=== PATIENT | female | born 1980 | race Caucasian/White ===

== ENCOUNTER 2016-05-23 22:22 | Emergency (ER) | payer MEDICAID ==
--- NOTE | 2016-05-23 22:55 | Emergency Department Record ---
History of Present Illness - General Chief Complaint: Fall Injury Stated Complaint: FALL Time Seen by Provider: 05/23/16 22:54 Source: Patient Mode of Arrival: Ambulatory Limitations: No limitations - History of Present Illness Initial Comments: The patient is here due to a worsening of her chronic L hip pain. She states she has had the pain for at least 6 months and tonight tripped on the carpet and landed on her buttocks. Now the pain is worse. She is able to walk with a mild limp. She denies any back or AP. Her LMP was WNL and she does have an IUD in place so she denies the possibility of . MD Complaint: Fall Onset/Timin -: Hour(s) Fall From: From height (distance) When Fall Occurred: Just prior to arrival, [address] Fall Occurred: Home Loss of Consciousness: None Prolonged Down Time?: No Symptoms Prior to Fall: None Location: Buttocks Severity: Mild Severity scale (1-10): 8 Quality: Other Context: Other Associated Symptoms: Denies - Riana Coma Scale Eye Response: (4) Open spontaneously Motor Response: (6) Obeys commands Verbal Response: (5) Oriented Riana Total: 15 - Related Data Home Medications Medication Instructions Recorded Confirmed Last Taken Sertraline HCl [Zoloft] 50 mg PO DAILY 12/20/15 05/23/16 03/30/16 Alprazolam [Alprazolam] 0.25 mg PO ASDIR 05/23/16 05/23/16 Unknown Previous Rx's Medication Instructions Recorded Naproxen [Naprosyn] 250 mg PO BID #14 tablet 05/23/16 Allergies Allergy/AdvReac Type Severity Reaction Status Date / Time tramadol Allergy HIVES Verified 12/20/15 22:01 Travel Screening - Travel/Exposure Within Last 30 Days Have you traveled within the last 30 days?: No - Travel/Exposure Within Last Year Have you traveled outside the [place] in the last year?: No - Additonal Travel Details Have you been exposed to anyone with a communicable illness?: No - Travel Symptoms Symptom Screening: None Review of Systems Constitutional: Denies: Chills, Fever Eyes: Denies: Eye discharge ENT: Denies: Congestion Respiratory: Denies: Cough, Dyspnea Past Medical History - SOCIAL HISTORY Smoking Status: Current every day smoker Alcohol Use: None Drug Use: None - RESPIRATORY Hx Respiratory Disorders: Yes Hx Asthma: Yes - CARDIOVASCULAR Hx Cardio Disorders: No - NEURO Hx Neuro Disorders: Yes Hx Headaches: Yes - GI Hx GI Disorders: No - Hx Genitourinary Disorders: No - ENDOCRINE Hx Endocrine Disorders: No - MUSCULOSKELETAL Hx Musculoskeletal Disorders: No - PSYCH Hx Psych Problems: Yes Hx Anxiety: Yes Hx Depression: Yes (Bipolar) - HEMATOLOGY/ONCOLOGY Hx Hematology/Oncology Disorders: No Family Medical History Any Significant Family History?: No Hx Cancer: Mother, Grandparents Hx Diabetes: Grandparents Physical Exam - General General Appearance: Alert, Oriented x3, Cooperative, No acute distress - Head Head exam: Atraumatic, Normal inspection - Eye Eye exam: Normal appearance, PERRL - GI/Abdominal GI/Abdominal exam: Soft, Normal bowel sounds. negative: Tenderness - Extremities Extremities exam: Normal inspection, Full ROM (There is pain with ROM of the L hip.), Tenderness (There is mild L hip tenderness.) - Back Back exam: Reports: Normal inspection, Full ROM. Denies: Muscle spasm, Paraspinal tenderness, Rash noted, Tenderness, Vertebral tenderness - Neurological Neurological exam: Alert, Normal gait. negative: Abnormal gait, Motor sensory deficit Course Vital Signs 05/23/16 22:37 Temperature 98.3 F Pulse Rate 80 Respiratory 20 Rate Blood Pressure 123/83 Pulse Ox 98 - Reevaluation(s) Reevaluation #1: I did discuss the xrays with the patient and the need for F/U with her PCP. 05/23/16 23:26 Medical Decision Making - Data Complexity MDM Data: X-Ray Ordered and/or Reviewed - Radiology Data Radiology results: Report reviewed (L Hip: Neg.) Disposition Disposition: Discharge Clinical Impression: Contusion of hip Qualifiers: Encounter type: initial encounter Laterality: left Qualified Code(s): S70.02XA - Contusion of left hip, initial encounter Disposition: Home, Self-Care Condition: (1) Good Instructions: Contusion in Adults (ED) Additional Instructions: Please use ice to the L hip during the day. Take Naprosyn for pain. Please see your PCP if not better in 3-5 days. Prescriptions: Naproxen [Naprosyn] 250 mg PO BID #14 tablet Forms: Patient Portal Access Time of Disposition: 23:27
[2016-05-23] MEDS ORDERED: KETOROLAC 30 MG/ML VIAL IM ONE (22:57)
[2016-05-23] MEDS ORDERED: HYDROCODONE/APAP 5/325MG TABLET PO ONE (23:25)
--- NOTE | 2016-05-28 12:48 | RADIOLOGY REPORT ---
EXAM: LEFT HIP HISTORY: PAIN POST FALL. PAIN WHEN LYING FLAT. TECHNIQUE: An AP view of the pelvis was obtained as well as AP and frog leg lateral views of the left hip. Comparison: Left hip dated 12/21/15. FINDINGS: There is normal bone mineralization. No acute fracture, dislocation , or destructive bone lesion is seen. The hip joint spaces are maintained. Tiny ossicles are again noted at the level of the superior lateral margins of the acetabuli. These are likely developmental. An intrauterine contraceptive device is in place with the uterine fundus likely tilted rightward. No mass or suspicious calcification. IMPRESSION: NO ACUTE FRACTURE NOR DISLOCATION IDENTIFIED. JOB NUMBER: [id number] MTDD
== END 2016-05-23 23:43 | disposition home or self-care (01) ==
LOC: ER 22:22
DX: S70.02XA Contusion of left hip, initial encounter (principal); W18.09XA Striking against other object with subsequent fall, initial encounter; Y92.009 Unspecified place in unspecified non-institutional (private) residence as the place of occurrence of the external cause
CPT/HCPCS: 99283; 96372; 99284; 73502; J1885

== ENCOUNTER 2016-06-12 17:58 | Emergency (ER) | payer MEDICAID ==
[2016-06-12] MEDS ORDERED: NAPROXEN 250 MG TABLET PO ONE (18:33)
[2016-06-12 18:35] LABS: URINE APPEARANCE CLEAR; URINE BILIRUBIN NEGATIVE (NEGATIVE); URINE BLOOD TRACE-I (NEGATIVE); URINE COLOR YELLOW; URINE GLUCOSE (UA) NEGATIVE (NEGATIVE); URINE KETONE NEGATIVE (NEGATIVE); URINE LEUKOCYTE ESTERASE NEGATIVE (NEGATIVE); URINE NITRITE NEGATIVE (NEGATIVE); URINE PROTEIN NEGATIVE (NEGATIVE); URINE UROBILINOGEN 0.2 E.U./dL (0.20 - 1.00)
--- NOTE | 2016-06-12 18:36 | Emergency Department Record ---
History of Present Illness - General Chief Complaint: Abdominal Pain Stated Complaint: LEFT ABD PAIN/CYST Time Seen by Provider: 06/12/16 18:32 Source: Patient Mode of Arrival: Ambulatory Limitations: No limitations - History of Present Illness Initial Comments: 35 yo female presents to ED with a CC of LLQ pain x 1 week. Patient reports that she was diagnosed with as "pelvic infection" 1 week ago as well as a ovarian cyst 1 week ago in [place] ED. Patient denies fevers, chills, or recent illness. Patient denies health problems at her baseline. Patient is now out of her [place] and Motrin that she was prescribed, but is still taking her antibiotic. MD Complaint: Abdominal pain Onset/Timin -: Week(s) Location: LLQ Severity: Moderate Consistency: Constant Improves With: Nothing Worsens With: Other (palpation) Associated Symptoms: Denies other symptoms - Related Data Patient : No Home Medications Medication Instructions Recorded Confirmed Last Taken Sertraline HCl [Zoloft] 50 mg PO DAILY 12/20/15 06/12/16 06/12/16 Metronidazole [Flagyl] 500 mg PO BID 06/12/16 06/12/16 06/12/16 Previous Rx's Medication Instructions Recorded Ibuprofen [Motrin] 800 mg PO Q6H PRN #30 tab 06/12/16 Allergies Allergy/AdvReac Type Severity Reaction Status Date / Time tramadol Allergy HIVES Verified 06/12/16 18:35 Review of Systems Constitutional: Denies: Chills, Fever, Malaise, Night sweats Eyes: Denies: Eye discharge, Eye pain ENT: Denies: Congestion, Ear pain, Epistaxis Respiratory: Denies: Cough, Dyspnea Cardiovascular: Denies: Chest pain, Dyspnea on exertion Endocrine: Denies: Fatigue, Heat or cold intolerance Gastrointestinal: Reports: Abdominal pain. Denies: Nausea, Vomiting Genitourinary: Denies: Dysuria, Hematuria, Incontinence Musculoskeletal: Denies: Arthralgia, Back pain, Gout, Joint swelling Skin: Denies: Bruising, Change in color Neurological: Denies: Abnormal gait, Confusion, Headache, Tingling Psychiatric: Denies: Anxiety Hematological/Lymphatic: Denies: Anemia, Blood Clots Past Medical History - SOCIAL HISTORY Smoking Status: Current every day smoker Drug Use: None - RESPIRATORY Hx Respiratory Disorders: Yes Hx Asthma: Yes - CARDIOVASCULAR Hx Cardio Disorders: No - NEURO Hx Neuro Disorders: Yes Hx Headaches: Yes - GI Hx GI Disorders: No - Hx Genitourinary Disorders: No - ENDOCRINE Hx Endocrine Disorders: No - MUSCULOSKELETAL Hx Musculoskeletal Disorders: No - PSYCH Hx Psych Problems: Yes Hx Anxiety: Yes Hx Depression: Yes (Bipolar) - HEMATOLOGY/ONCOLOGY Hx Hematology/Oncology Disorders: No Family Medical History Hx Cancer: Mother, Grandparents Hx Diabetes: Grandparents Physical Exam - General General Appearance: Alert, Oriented x3, Cooperative, Mild distress Limitations: No limitations - Head Head exam: Atraumatic, Normocephalic, Normal inspection Head exam detail: negative: Abrasion, Contusion, Donahue's sign, General tenderness, Hematoma, Laceration - Eye Eye exam: Normal appearance. negative: Conjunctival injection, Periorbital swelling, Periorbital tenderness, Scleral icterus - ENT Ear exam: negative: Auricular hematoma, Auricular trauma Nasal Exam: negative: Active bleeding, Discharge, Dried blood, Foreign body, Sinus tenderness Mouth exam: negative: Drooling, Laceration, Muffled voice, Tongue elevation - Neck Neck exam: Normal inspection. negative: Meningismus, Tenderness - Respiratory Respiratory exam: Normal lung sounds bilaterally. negative: Respiratory distress, Rhonchi, Stridor, Wheezes - Cardiovascular Cardiovascular Exam: Regular rate, Normal rhythm, Normal heart sounds - GI/Abdominal GI/Abdominal exam: Soft, Tenderness (TTP LLQ, no rebound or guarding on examination). negative: Distended, Rebound, Rigid - Rectal Rectal exam: Deferred - exam: Deferred - Extremities Extremities exam: Normal inspection. negative: Calf tenderness, Pedal edema, Tenderness - Back Back exam: Denies: CVA tenderness (R), CVA tenderness (L) - Neurological Neurological exam: Alert, Normal gait, Oriented X3 - Psychiatric Psychiatric exam: Normal affect, Normal mood - Skin Skin exam: Normal color. negative: Abrasion Type of lesion: negative: abrasion Course - Reevaluation(s) Reevaluation #1: 06/12/16 19:13 Labs reviewed and are grossly unremarkable for an acute process. Patient is currently in US. Patient declined Naprosyn for her pain symptoms that was ordered for her in ED. Reevaluation #2: 06/12/16 20:46 US pelvis: 3.2 cm simple cyst left, normal blood flow bilaterally, intrauterine device in satisfactory placement. Patient updated on all results, is resting comfortably on re-examination, and appears stable for discharge with OB follow-up in 3-5 days as directed. Medical Decision Making - Lab Data Result diagrams: 06/12/16 18:45 06/12/16 18:45 Disposition Disposition: Discharge Clinical Impression: Cyst of ovary Qualifiers: Laterality: left Qualified Code(s): N83.202 - Unspecified ovarian cyst, left side Disposition: Home, Self-Care Condition: (2) Stable Instructions: Ovarian Cyst (ED) Additional Instructions: Return to ED if your symptoms worsen or if you have any concerns. Motrin 800 mg as directed. Follow-up with Dr. Samuel in the [facility] next week regarding your ovarian cyst pain. Prescriptions: Ibuprofen [Motrin] 800 mg PO Q6H PRN #30 tab PRN Reason: Abdominal Pain Referrals: SANDY GAMINO [DOCTOR OF OSTEOPATH] - [facility] [Provider Group] Forms: Patient Portal Access Time of Disposition: 20:50
[2016-06-12 18:37] LABS: HCG,QUALITATIVE URINE NEGATIVE (NEGATIVE)
[2016-06-12 18:43] LABS: URINE BACTERIA NONE SEEN; URINE EPITHELIAL CELLS 0 - 2 (FEW); URINE RBC 0 - 2 (NONE SEEN); URINE WBC 0 - 2 (0-2/hpf)
[2016-06-12 18:58] LABS: BASO % 0.3 % (0-6); EOS % 2.9 % (0-6); GRAN % 62.9 % (47-80); HEMATOCRIT 42.8 % (35.0-47.0); HEMOGLOBIN 14.1 gm/dl (11.6-16.0); MEAN CELL VOLUME 93.9 fl (81-97); MEAN CORPUSCULAR HEMOGLOBIN 30.9 pg (27-33); MEAN CORPUSCULAR HGB CONC 32.9 g/dl (32-36); MEAN PLATELET VOLUME 12.2 fl (7.4-10.4); MONO % 7.9 % (0-9); PLATELET COUNT 244 K/uL (130-400); RED BLOOD COUNT 4.56 M/uL (3.80-5.40); WHITE BLOOD COUNT W/O DIFF 7.6 K/uL (4.2-12.2)
[2016-06-12 19:11] LABS: ALB/GLOB RATIO 1.7 (1.1-1.8); ALBUMIN 4.5 gm/dL (3.5-5.0); ALKALINE PHOSPHATASE 58 U/L (38-126); ALT/SGPT 30 U/L (9-52); AST/SGOT 19 U/L (14-36); BILIRUBIN,TOTAL 0.99 mg/dL (0.2-1.3); BLOOD UREA NITROGEN 11 mg/dL (7-17); CREATININE 0.8 mg/dL (0.52-1.04); EST GLOMERULAR FILTRATION RATE > 60 ml/min; GLUCOSE,RANDOM 107 mg/dL (70-110); LIPASE 115 U/L (23-300); TOTAL PROTEIN 7.2 gm/dL (6.3-8.2)
--- NOTE | 2016-06-13 13:58 | ULTRASOUND REPORT ---
EXAM: PELVIC ULTRASOUND WITH DUPLEX DOPPLER HISTORY: ACUTE LEFT LOWER QUADRANT PELVIC PAIN. VAGINAL BLEEDING IRREGULARITY. TECHNIQUE: Real-time chatterjee scale sonographic imaging of the pelvis was performed with Duplex Doppler as well as spectral waveform analysis. Comparison: None. FINDINGS: Transabdominal images demonstrate an intrauterine device within the endometrial cavity. The myometrium is homogeneous. The uterus measures 6.6 x 3.4 x 5.3 cm. The right ovary is grossly unremarkable measuring 1.6 x 0.8 x 2.3 cm. The left ovary demonstrates a few anechoic follicles measuring up to 2.2 cm. The left ovary measures 5.4 x 2.7 x 2.7 cm. The endometrial echo complex is not well delineated due to poor penetration. Transvaginal images demonstrate a normal size uterus, a homogeneous myometrium and an intrauterine device within the endometrial cavity. The endometrial echo complex thickness is 5 mm, within normal limits. The right ovary is normal measuring 2.4 x 1.5 x 1.8 cm. The right ovary demonstrates anechoic foci, the largest measuring 3.2 cm and the other measuring up to 1.6 cm. No color flow within the cysts. Symmetric color flow to the ovaries. Spectral waveform analysis reveals normal unidirectional arterial and venous waveforms in both ovaries. Trace free fluid in the pelvis likely physiologic. No adnexal mass. IMPRESSION: 1. INTRAUTERINE DEVICE WITHIN THE ENDOMETRIAL CAVITY IN APPROPRIATE POSITION, OTHERWISE UNREMARKABLE UTERUS. 2. SMALL AMOUNT OF FREE PELVIC FLUID LIKELY PHYSIOLOGIC. 3. NORMAL COLOR FLOW TO THE OVARIES WITH NO EVIDENCE OF TORSION. 4. 3.2 CM LEFT OVARIAN CYST LIKELY DUE TO A BENIGN FUNCTIONAL CYST. JOB NUMBER: [id number] [facility]
== END 2016-06-12 21:09 | disposition home or self-care (01) ==
LOC: ER 17:58
DX: N83.202 Unspecified ovarian cyst, left side (principal)
CPT/HCPCS: 76830; 76856; 80053; 81001; 81025; 83690; 85025; 99283; 99284

== ENCOUNTER 2016-09-04 23:55 | Emergency (ER) | payer MEDICAID ==
[2016-09-05 00:21] LABS: URINE APPEARANCE CLEAR; URINE BILIRUBIN NEGATIVE (NEGATIVE); URINE BLOOD NEGATIVE (NEGATIVE); URINE COLOR YELLOW; URINE GLUCOSE (UA) NEGATIVE (NEGATIVE); URINE KETONE TRACE (NEGATIVE); URINE LEUKOCYTE ESTERASE NEGATIVE (NEGATIVE); URINE NITRITE POSITIVE (NEGATIVE); URINE UROBILINOGEN 0.2 E.U./dL (0.20 - 1.00)
[2016-09-05] MEDS ORDERED: KETOROLAC 30 MG/ML VIAL IVP ONE (00:22)
[2016-09-05 00:26] LABS: URINE BACTERIA 2+; URINE RBC 0 - 2 (NONE SEEN)
--- NOTE | 2016-09-05 00:27 | Emergency Department Record ---
History of Present Illness - General Chief Complaint: Abdominal Pain Stated Complaint: ABDOMINAL PAIN Time Seen by Provider: 09/04/16 23:57 Source: Patient Mode of Arrival: Ambulatory Limitations: No limitations - History of Present Illness Initial Comments: 36 yo female presents to ED with a CC of "left sided ovarian cyst pain". Patient reports that she was seen in [place] and was diagnosed with (2) cysts to the left ovary. Patient denies urinary or vaginal symptoms, denies fevers, chills, or recent illness. Patient was seeing a visual merchandising manager in [place] (Dr. Huggins) , but was not helpful with her symptoms. As a result, patient reports that she is going to see a "Ameena" there Saturday for further evaluation. Patient reports taking Motrin and Naprosyn for her symptoms which have not helped her pain symptoms today. MD Complaint: Abdominal pain Onset/Timin -: Days(s) Location: [facility] Radiation: None Severity: Mild Quality: Aching Consistency: Constant Improves With: Nothing Worsens With: Nothing - Related Data LMP (females 10-50): Unknown Patient : No (IUD) Previous Rx's Medication Instructions Recorded Nitrofurantoin Howell [Macrobid] 100 mg PO BID #14 capsule 09/05/16 Phenazopyridine HCl [Pyridium] 200 mg PO TID #5 tab 09/05/16 Allergies Allergy/AdvReac Type Severity Reaction Status Date / Time tramadol Allergy HIVES Verified 06/12/16 18:35 Travel Screening - Travel/Exposure Within Last 30 Days Have you traveled within the last 30 days?: No Review of Systems Constitutional: Denies: Chills, Fever, Malaise, Night sweats Eyes: Denies: Eye discharge, Eye pain ENT: Denies: Congestion, Ear pain Respiratory: Denies: Cough, Dyspnea Cardiovascular: Denies: Chest pain, Dyspnea on exertion Endocrine: Denies: Fatigue, Heat or cold intolerance Gastrointestinal: Reports: Abdominal pain. Denies: Constipation, Nausea, Vomiting Genitourinary: Denies: Dysuria, Frequency, Hematuria, Incontinence Musculoskeletal: Denies: Arthralgia, Back pain, Gout, Joint swelling Skin: Denies: Bruising, Change in color Neurological: Denies: Abnormal gait, Confusion, Headache, Seizure Psychiatric: Denies: Anxiety Hematological/Lymphatic: Denies: Anemia, Blood Clots Past Medical History - SOCIAL HISTORY Smoking Status: Current every day smoker Alcohol Use: None Drug Use: None - RESPIRATORY Hx Respiratory Disorders: Yes Hx Asthma: Yes - CARDIOVASCULAR Hx Cardio Disorders: No - NEURO Hx Neuro Disorders: Yes Hx Headaches: Yes - GI Hx GI Disorders: No - Hx Genitourinary Disorders: No - ENDOCRINE Hx Endocrine Disorders: No - MUSCULOSKELETAL Hx Musculoskeletal Disorders: No - PSYCH Hx Psych Problems: Yes Hx Anxiety: Yes Hx Depression: Yes (Bipolar) - HEMATOLOGY/ONCOLOGY Hx Hematology/Oncology Disorders: No Family Medical History Any Significant Family History?: Yes Hx Cancer: Mother, Grandparents Hx Diabetes: Grandparents Physical Exam - General General Appearance: Alert, Oriented x3, Cooperative, No acute distress Limitations: No limitations - Head Head exam: Atraumatic, Normocephalic, Normal inspection Head exam detail: negative: Abrasion, Contusion, Donahue's sign, General tenderness, Hematoma, Laceration - Eye Eye exam: Normal appearance. negative: Conjunctival injection, Periorbital swelling, Periorbital tenderness, Scleral icterus - ENT Ear exam: negative: Auricular hematoma, Auricular trauma Nasal Exam: negative: Active bleeding, Discharge, Dried blood, Foreign body Mouth exam: negative: Drooling, Laceration, Muffled voice, Tongue elevation - Neck Neck exam: Normal inspection. negative: Meningismus, Tenderness - Respiratory Respiratory exam: Normal lung sounds bilaterally. negative: Rales, Respiratory distress, Rhonchi, Stridor, Wheezes - Cardiovascular Cardiovascular Exam: Regular rate, Normal rhythm, Normal heart sounds - GI/Abdominal GI/Abdominal exam: Soft, Tenderness (Mild-moderate TTP LLQ on examination, no rebound or guarding are present). negative: Rebound, Rigid - Rectal Rectal exam: Deferred - exam: Deferred - Extremities Extremities exam: Normal inspection. negative: Calf tenderness, Pedal edema, Tenderness - Back Back exam: Denies: CVA tenderness (R), CVA tenderness (L) - Neurological Neurological exam: Alert, Normal gait, Oriented X3 - Psychiatric Psychiatric exam: Normal affect, Normal mood - Skin Skin exam: Normal color. negative: Abrasion Type of lesion: negative: abrasion Course Vital Signs 09/05/16 00:03 Temperature 98.4 F Pulse Rate 91 H Respiratory 18 Rate Blood Pressure 122/86 Pulse Ox 100 - Reevaluation(s) Reevaluation #1: 09/05/16 00:27 Previous records reviewed, similar presentation with previous visit to [place] ED on 06/12/16. Patient has also been seen at [facility] 1 month ago (08/05/16) for migraine headaches. MAPS reviewed, #15 Jacob tablets filled 08/18/16, 06/08/16. Reevaluation #2: 09/05/16 00:59 Labs reviewed, UA demonstrates 3-6 WBCs, 2+ bacteria. Labs are otherwise grossly unremarkable for an acute process. Patient reassessed, reports Toradol has not helped significantly. Patient was instructed to call her new visual merchandising manager for further evaluation of her pain symptoms tomorrow morning, has appointment scheduled for 09/07 as well. Patient was also given Levsin and Pyridium for possible pain related to her UTI symptoms. I do feel strongly that prescribing Hydrocodone for her chronic cyst and abdominal pain symptoms is not indicated. Patient was counseled to contact her new visual merchandising manager for management of her pain symptoms. Patient has no clinical suspicion for ovarian torsion or acute surgical process on examination. Patient appears stable for discharge at this time. 09/05/16 01:41 Medical Decision Making - Lab Data Result diagrams: 09/05/16 00:30 09/05/16 00:30 Lab Results 09/05/16 Range/Units 00:21 Urine Color Yellow Urine Appearance Clear Urine pH 7.0 (5.0-8.0) Ur Specific Warren 1.020 (1.002-1.030) Urine Protein 30 mg/dl H (NEGATIVE) Urine Glucose (UA) Negative (NEGATIVE) Urine Ketones Trace H (NEGATIVE) Urine Blood Negative (NEGATIVE) Urine Nitrite Positive H (NEGATIVE) Urine Bilirubin Negative (NEGATIVE) Urine Urobilinogen 0.2 (0.20 - 1.00) E.U./dL Ur Leukocyte Esterase Negative (NEGATIVE) Disposition Disposition: Discharge Clinical Impression: Chronic abdominal pain UTI (urinary tract infection) Qualifiers: Urinary tract infection type: acute cystitis Hematuria presence: without hematuria Qualified Code(s): N30.00 - Acute cystitis without hematuria Disposition: Home, Self-Care Condition: (2) Stable Instructions: Abdominal Pain (ED) Additional Instructions: Return to ED if your symptoms worsen or if you have any concerns. Macrobid as directed. Follow-up with your visual merchandising manager for further evaluation of your ovarian cyst pain symptoms in 1-3 days as directed. Prescriptions: Nitrofurantoin Howell [Macrobid] 100 mg PO BID #14 capsule Phenazopyridine HCl [Pyridium] 200 mg PO TID #5 tab Forms: Patient Portal Access Time of Disposition: 01:07
[2016-09-05 00:44] LABS: BASO % 0.2 % (0-6); EOS % 2.1 % (0-6); GRAN % 61.6 % (47-80); HEMATOCRIT 44.3 % (35.0-47.0); HEMOGLOBIN 14.8 gm/dl (11.6-16.0); LYMPH % 26.5 % (16-45); MEAN CELL VOLUME 94.5 fl (81-97); MEAN CORPUSCULAR HEMOGLOBIN 31.6 pg (27-33); MEAN CORPUSCULAR HGB CONC 33.4 g/dl (32-36); MEAN PLATELET VOLUME 11.7 fl (7.4-10.4); MONO % 9.6 % (0-9); PLATELET COUNT 276 K/uL (130-400); RED BLOOD COUNT 4.69 M/uL (3.80-5.40); RED CELL DISTRIBUTION WIDTH 13.2 % (11.5-14.5); WHITE BLOOD COUNT W/O DIFF 11.2 K/uL (4.2-12.2)
[2016-09-05 00:57] LABS: ALB/GLOB RATIO 1.8 (1.1-1.8); ALBUMIN 4.8 gm/dL (3.5-5.0); ALKALINE PHOSPHATASE 68 U/L (38-126); ALT/SGPT 27 U/L (9-52); ANION GAP 8.3 (7-16); AST/SGOT 20 U/L (14-36); BILIRUBIN,TOTAL 0.47 mg/dL (0.2-1.3); BLOOD UREA NITROGEN 14 mg/dL (7-17); CARBON DIOXIDE 27.7 mmol/L (22-30); CREATININE 0.9 mg/dL (0.52-1.04); EST GLOMERULAR FILTRATION RATE > 60 ml/min; GLUCOSE,RANDOM 101 mg/dL (70-110); LIPASE 193 U/L (23-300); TOTAL PROTEIN 7.5 gm/dL (6.3-8.2)
[2016-09-05] MEDS ORDERED: NITROFURANTOIN MONO 100 MG CAPSULE PO ONE (01:06)
[2016-09-05] MEDS ORDERED: PHENAZOPYRIDINE HCL 95 MG TABLET PO ONE (01:06)
[2016-09-05] MEDS ORDERED: HYOSCYAMINE SULFATE ODT 0.125 MG TAB.SUBL SL ONE (01:07)
== END 2016-09-05 01:23 | disposition home or self-care (01) ==
LOC: ER 23:55
DX: G89.29 Other chronic pain (principal); R10.32 Left lower quadrant pain; N30.00 Acute cystitis without hematuria
CPT/HCPCS: 99284 ×2; 96374; 83690; 85025; 80053; 81001; 81025; J1980; J1885

== ENCOUNTER 2018-10-09 18:12 | Emergency (ER) | payer MEDICAID ==
[2018-10-09] MEDS ORDERED: KETOROLAC 30 MG/ML VIAL IVP ONE (18:44)
[2018-10-09] MEDS ORDERED: 0.9 % SODIUM CHLORIDE 1,000 ML BAG IV ONE (18:44)
--- NOTE | 2018-10-09 18:52 | Emergency Department Record ---
History of Present Illness - General Chief Complaint: Abdominal Pain Stated Complaint: ABD PAIN Time Seen by Provider: 10/09/18 18:38 Source: Patient Mode of Arrival: Ambulatory Limitations: No limitations - History of Present Illness Initial Comments: pt has llq ap today that has become much worse. this is unlike anything she has ever had. no n/v/c/d. walking doesnt make it worse. she is currently being treated for a vaginal infection and is on abx MD Complaint: Abdominal pain Onset/Timin -: Days(s) Location: LLQ Radiation: Back Severity: Moderate Severity scale (1-10): 9 Quality: Sharp Consistency: Constant Improves With: Nothing Worsens With: Nothing Associated Symptoms: Denies other symptoms - Related Data LMP (females 10-50): 1 month ago Patient : No Home Medications Medication Instructions Recorded Confirmed Last Taken Metronidazole 500 mg PO BID 10/09/18 10/09/18 Unknown Allergies Allergy/AdvReac Type Severity Reaction Status Date / Time tramadol Allergy HIVES Verified 06/12/16 18:35 Travel Screening - Travel/Exposure Within Last 30 Days Have you traveled within the last 30 days?: No Review of Systems Reviewed: No additional complaints except as noted below Constitutional: Reports: As per HPI. Denies: Chills, Fever, Malaise, Night sweats, Weakness, Weight change Eyes: Reports: As per HPI. Denies: Eye discharge, Eye pain, Photophobia, Vision change ENT: Reports: As per HPI. Denies: Congestion, Dental pain, Ear pain, Epistaxis, Hearing loss, Throat pain Respiratory: Reports: As per HPI. Denies: Cough, Dyspnea, Hemoptysis, Stridor, Wheezes Cardiovascular: Reports: As per HPI. Denies: Arrhythmia, Chest pain, Dyspnea on exertion, Edema, Murmurs, Orthopnea, Palpitations, Paroxysmal nocturnal dyspnea, Rheumatic Fever, Syncope Endocrine: Reports: As per HPI. Denies: Fatigue, Heat or cold intolerance, Polydipsia, Polyuria Gastrointestinal: Reports: As per HPI, Abdominal pain. Denies: Constipation, Diarrhea, Hematemesis, Hematochezia, Melena, Nausea, Vomiting Genitourinary: Reports: As per HPI. Denies: Abnormal menses, Discharge, Dyspareunia, Dysuria, Frequency, Hematuria, Incontinence, Retention, Urgency Musculoskeletal: Reports: As per HPI. Denies: Arthralgia, Back pain, Gout, Joint swelling, Myalgia, Neck pain Skin: Reports: As per HPI. Denies: Bruising, Change in color, Change in hair/nails, Lesions, Pruritus, Rash Neurological: Reports: As per HPI. Denies: Abnormal gait, Confusion, Headache, Numbness, Paresthesias, Seizure, Tingling, Tremors, Vertigo, Weakness Psychiatric: Reports: As per HPI. Denies: Anxiety, Auditory hallucinations, D epression, Homicidal thoughts, Suicidal thoughts, Visual hallucinations Hematological/Lymphatic: Reports: As per HPI. Denies: Anemia, Blood Clots, Easy bleeding, Easy bruising, Swollen glands Past Medical History - SOCIAL HISTORY Smoking Status: Current every day smoker Alcohol Use: None Drug Use: None - RESPIRATORY Hx Respiratory Disorders: Yes Hx Asthma: Yes - CARDIOVASCULAR Hx Cardio Disorders: No - NEURO Hx Neuro Disorders: Yes Hx Headaches: Yes - GI Hx GI Disorders: No - Hx Genitourinary Disorders: No - ENDOCRINE Hx Endocrine Disorders: No - MUSCULOSKELETAL Hx Musculoskeletal Disorders: No - PSYCH Hx Psych Problems: Yes Hx Anxiety: Yes Hx Depression: Yes (Bipolar) - HEMATOLOGY/ONCOLOGY Hx Hematology/Oncology Disorders: No Family Medical History Any Significant Family History?: Yes Hx Cancer: Mother, Grandparents Hx Diabetes: Grandparents Physical Exam - General General Appearance: Alert, Oriented x3, Cooperative, Mild distress - Head Head exam: Normal inspection - Eye Eye exam: Normal appearance, PERRL, EOMI Pupils: Normal accommodation - ENT ENT exam: Normal exam, Mucous membranes moist, Normal external ear exam, Normal orophraynx Ear exam: Normal external inspection. negative: External canal tenderness Nasal Exam: Normal inspection. negative: Discharge, Sinus tenderness Mouth exam: Normal external inspection, Tongue normal Teeth exam: Normal inspection. negative: Dental caries Throat exam: Normal inspection. negative: Tonsillar erythema, Tonsillar exudate - Neck Neck exam: Normal inspection, Full ROM. negative: Tenderness - Respiratory Respiratory exam: Normal lung sounds bilaterally. negative: Respiratory distress - Cardiovascular Cardiovascular Exam: Regular rate, Normal rhythm, Normal heart sounds - GI/Abdominal GI/Abdominal exam: Soft, Normal bowel sounds, Tenderness (llq) - Rectal Rectal exam: Deferred - exam: Deferred - Extremities Extremities exam: Normal inspection, Full ROM, Normal capillary refill. negative: Tenderness - Back Back exam: Reports: Normal inspection, Full ROM. Denies: Muscle spasm, Rash no eduar, Tenderness - Neurological Neurological exam: Alert, CN II-XII intact, Normal gait, Oriented X3 - Psychiatric Psychiatric exam: Normal affect, Normal mood - Skin Skin exam: Dry, Intact, Normal color, Warm Course Vital Signs 10/09/18 18:17 Temperature 98.2 F Pulse Rate 102 H Respiratory 20 Rate Blood Pressure 125/96 Pulse Ox 100 Medical Decision Making - Lab Data Result diagrams: 10/09/18 18:45 10/09/18 18:45 Disposition Disposition: Discharge Clinical Impression: Ovarian cyst Qualifiers: Laterality: left Qualified Code(s): N83.202 - Unspecified ovarian cyst, left side Disposition: Home, Self-Care Condition: (1) Good Instructions: Ovarian Cyst (ED) Additional Instructions: follow up with cremator. return sooner if worse. motrin for pain Forms: Patient Portal Access Quality - Quality Measures Quality Measures: N/A - Blood Pressure Screening Does Patient Have Any of the Following: No Blood Pressure Classification: Hypertensive Reading Systolic Measurement: 125 Diastolic Measurement: 96 Screening for High Blood Pressure: < Pre-Hypertensive BP, F/U Documented > [G 8950] Pre-Hypertensive Follow-up Interventions: Follow-up with rescreen every year.
[2018-10-09 18:57] LABS: ABSOLUTE NEUTROPHIL COUNT 7.03; BASO % 0.2 % (0-6); EOS % 1.5 % (0-6); GRAN % 69.1 % (47-80); HEMATOCRIT 45.2 % (35.0-47.0); HEMOGLOBIN 15.3 gm/dl (11.6-16.0); LYMPH % 22.5 % (16-45); MEAN CELL VOLUME 93.6 fl (81-97); MEAN CORPUSCULAR HEMOGLOBIN 31.7 pg (27-33); MEAN CORPUSCULAR HGB CONC 33.8 g/dl (32-36); MEAN PLATELET VOLUME 12.3 fl (7.4-10.4); MONO % 6.7 % (0-9); PLATELET COUNT 280 K/uL (130-400); RED BLOOD COUNT 4.83 M/uL (3.80-5.40); RED CELL DISTRIBUTION WIDTH 11.9 % (11.5-14.5); WHITE BLOOD COUNT W/O DIFF 10.2 K/uL (4.2-12.2)
[2018-10-09 19:07] LABS: BLOOD UREA NITROGEN 9 mg/dL (6-20); CREATININE 0.8 mg/dL (0.5-0.9); EST GLOMERULAR FILTRATION RATE > 60 mL/min
[2018-10-09] MEDS ORDERED: HYDROMORPHONE HCL 2 MG/ML VIAL IVP ONE (19:07)
[2018-10-09] MEDS ORDERED: ONDANSETRON HCL IV 4 MG/2 ML VIAL IVP ONE (19:07)
[2018-10-09 19:08] LABS: TOTAL PROTEIN 7.6 g/dL (6.6-8.7)
[2018-10-09 19:10] LABS: GLUCOSE,RANDOM 124 mg/dL (74-109)
[2018-10-09 19:12] LABS: ALT/SGPT 21 U/L (<33)
[2018-10-09 19:13] LABS: ALB/GLOB RATIO 1.8 (1.1-1.8); ALBUMIN 4.9 g/dL (4.0-5.0); ALKALINE PHOSPHATASE 67 U/L (35-104); AST/SGOT 33 U/L (10.0-35.0)
[2018-10-09 20:32] LABS: HCG,QUALITATIVE URINE NEGATIVE (NEGATIVE)
[2018-10-09 20:37] LABS: URINE APPEARANCE CLEAR; URINE BILIRUBIN NEGATIVE (NEGATIVE); URINE COLOR YELLOW; URINE GLUCOSE (UA) NEGATIVE (NEGATIVE); URINE KETONE NEGATIVE (NEGATIVE)
[2018-10-09 20:38] LABS: URINE BLOOD NEGATIVE (NEGATIVE); URINE LEUKOCYTE ESTERASE NEGATIVE (NEGATIVE); URINE NITRITE NEGATIVE (NEGATIVE); URINE PROTEIN NEGATIVE (NEGATIVE); URINE UROBILINOGEN 0.2 E.U./dL (0.20 - 1.00)
[2018-10-09] MEDS ORDERED: HYDROCODONE/APAP 5/325MG TABLET PO ONE (22:03)
--- NOTE | 2018-10-10 23:30 | CT SCAN REPORT ---
EXAM: CT SCAN ABDOMEN/PELVIS W CONTRAST HISTORY: LEFT LOWER QUADRANT ABDOMINAL PAIN. TECHNIQUE: Axial CT scan of the abdomen and pelvis obtained following both oral or IV contrast administration. Please see the medical record for contrast specifics. COMPARISON: No prior CT with which to compare. FINDINGS: No calcified gallstones are seen within the gallbladder. No definite hepatic, splenic, adrenal, pancreatic, or renal mass identified. Oral contrast given has passed throughout the small bowel and into the proximal colon with no small bowel obstruction evident. I believe the appendix is identified as a normal-caliber structure with no appendicitis evident. The uterus is tilted towards the right. There is probably an approximately1.7 cm left ovarian cyst. There are probably also additional smaller left ovarian cysts or possibly even a hydrosalpinx on the left. If there is clinical concern for the gynecologic viscera, follow-up pelvic ultrasound would be suggested. Small amount of free fluid in the pelvis may simply be physiologic in nature. The lung bases appear essentially clear. No free intraperitoneal air identified. There is bilateral spondylolysis of L5 with very slight spondylolisthesis of L5 on S1. IMPRESSION: 1. 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 2. UTERUS TILTED TOWARDS THE RIGHT. THERE IS PROBABLY AN APPROXIMATELY 1.7 CM LEFT OVARIAN CYST, POSSIBLY WITH SOME ADDITIONAL ADJACENT LEFT OVARIAN CYSTS OR EVEN A HYDROSALPINX ON THE LEFT. IF THERE IS CLINICAL CONCERN FOR THE GYNECOLOGIC VISCERA, FOLLOW-UP PELVIC ULTRASOUND MAY BE USEFUL. 3. SMALL AMOUNT OF FREE FLUID IN THE PELVIS MAY SIMPLY BE PHYSIOLOGIC. NO FREE AIR EVIDENT. APPENDIX NEGATIVE. JOB NUMBER: [id number] MTDD
== END 2018-10-09 22:17 | disposition home or self-care (01) ==
LOC: ER 18:12
DX: N83.202 Unspecified ovarian cyst, left side (principal); R10.32 Left lower quadrant pain; F17.210 Nicotine dependence, cigarettes, uncomplicated
CPT/HCPCS: 99284 ×2; 96374; 96375; 85025; 80053; 81003; 81025; 74177; Q9967; J2405; J1170; J7030